=== PATIENT | male | born 1985 | race Caucasian/White ===

== ENCOUNTER 2018-01-21 09:40 | Emergency (ER) | payer OTHER ==
[~2018-01-21] VITALS: Ht 175.3 cm; Wt 113.4 kg
[2018-01-21] MEDS ORDERED: proparacaine 0.5% ophthalmic drops 15ml RIGHTEYE ONE (10:00)
[2018-01-21] MEDS ORDERED: CIPR2.5D18 EACHEYE (10:05)
[2018-01-21] MEDS ORDERED: IBUP-1986 PO (10:05)
[2018-01-21] MEDS ORDERED: benoxinate/fluorescein ophth drops 5ml bottle RIGHTEYE ONE (10:15)
== END 2018-01-21 10:39 | disposition home or self-care (01) ==
LOC: ER 09:41
DX: H10.9 Unspecified conjunctivitis (principal)
CPT/HCPCS: 99283